=== PATIENT | male | born 1980 | race Caucasian/White ===

== ENCOUNTER 2019-04-12 12:48 | Emergency (ER) | payer OTHER ==
[~2019-04-12] VITALS: Ht 172.7 cm; Wt 76.2 kg
[~2019-04-12 12:48] MED LIST: IBUPROFEN 600600 M1 PO; NORCO 5-325 TA1 EACH PO; VALIUM2 MG PO
[2019-04-12] MEDS ORDERED: IBUPROFEN 600600 M1 PO (14:47)
[2019-04-12 15:10] VITALS: BP 131/71
== END 2019-04-12 15:10 | disposition home or self-care (01) ==
LOC: ER 12:48
DX: S61.411A Laceration without foreign body of right hand, initial encounter (principal); W26.0XXA Contact with knife, initial encounter; Y93.89 Activity, other specified; Y92.89 Other specified places as the place of occurrence of the external cause; Y99.9 Unspecified external cause status

== ENCOUNTER 2019-04-15 18:46 | Emergency (ER) | payer OTHER ==
[~2019-04-15] VITALS: Ht 172.7 cm; Wt 75.8 kg
[2019-04-15] MEDS ORDERED: TRAMADOL 50 MG50 MG PO (19:59)
[2019-04-15 20:48] VITALS: BP 133/83
== END 2019-04-15 20:49 | disposition home or self-care (01) ==
LOC: ER 18:46
DX: S61.411D Laceration without foreign body of right hand, subsequent encounter (principal); R20.2 Paresthesia of skin; W26.0XXD Contact with knife, subsequent encounter